=== PATIENT | female | born 1970 | race Caucasian/White ===

== ENCOUNTER → 2016-09-07 | Outpatient (CLI) | payer OTHER ==
[~2016-09-07] MED LIST: ADDERALL20 MG PO; METHYLPRED DP4 MG PO; MOTRIN 400MG.400 MG PO; NAPROSYN 500MG500 MG PO; PERCOCET 5/3251 EACH PO; PHENERGAN W/CO473 ML PO; PROPRANOLOL HCL20 MG PO; PROPYLTHIOURACI50 M1 PO; PROTONIX 40MG T40 MG PO; VENTOLIN H0.09 MG/AC IH; WELLBUTRIN XL150 MG PO; ZITHROMAX Z-PA250 M2 PO
[2016-09-07 12:35] LABS: HEMOGLOBIN 15.1 g/dL (12.2-16.2); LYMPH # 3.2 K/mm3 (0.7-4.5); LYMPH % 35.8 % (10-50.0)
[2016-09-08 09:41] LABS: Vitamin B12 315 pg/mL (211-946)
[2016-09-08 12:36] LABS: RA Latex Turbid. <10.0 IU/mL (0.0-13.9)
[2016-09-08 16:36] LABS: t-Transglutaminase (tTG) IgA <2 U/mL (0-3)
[2016-09-09 17:39] LABS: CELIAC AUTOANTIBODY IGA NEGATIVE (NEGATIVE)
[2016-09-09 17:40] LABS: RETICULIN IGA ANTIBODIES NEGATIVE TITER (<1:10)
[2016-09-11 09:37] LABS: Antinuclear Antibodies, IFA Negative (.)
[2016-09-11 16:36] LABS: F001-IgE Egg White <0.10 kU/L (Class 0); F002-IgE Milk <0.10 kU/L (Class 0); F003-IgE Codfish <0.10 kU/L (Class 0); F004-IgE Wheat <0.10 kU/L (Class 0); F010-IgE Sesame Seed <0.10 kU/L (Class 0); F013-IgE Peanut <0.10 kU/L (Class 0); F014-IgE Soybean <0.10 kU/L (Class 0); F024-IgE Shrimp <0.10 kU/L (Class 0); F256-IgE Walnut <0.10 kU/L (Class 0); F338-IgE Scallop <0.10 kU/L (Class 0)
== END ==
LOC: LAB 12:06
PROVIDERS: Nurse Practitioner Family
DX: K52.9 Noninfective gastroenteritis and colitis, unspecified (principal); M12.9 Arthropathy, unspecified; R20.2 Paresthesia of skin; E05.00 Thyrotoxicosis with diffuse goiter without thyrotoxic crisis or storm

== ENCOUNTER → 2017-03-30 | Outpatient (CLI) | payer OTHER ==
[2017-03-30 10:58] LABS: BUN 8 mg/dL (7-18); FREE THYROXIN INDEX 11.2 ug/dl (5.93-13.13)
[2017-03-30 11:03] LABS: GFR (ESTIMATED) 77 ML/MIN (59-)
== END ==
LOC: LAB 10:17
PROVIDERS: Nurse Practitioner Family
DX: E03.9 Hypothyroidism, unspecified (principal); R73.9 Hyperglycemia, unspecified; R60.9 Edema, unspecified; Z00.00 Encounter for general adult medical examination without abnormal findings

== ENCOUNTER → 2017-04-04 | Outpatient (CLI) | payer OTHER ==
[2017-04-06 05:40] LABS: HBsAg Screen Negative (Negative); Hep A Ab, IgM Negative (Negative); Hep B Core Ab, IgM Negative (Negative); Hep C Virus Ab <0.1 (0.0-0.9)
== END ==
LOC: LAB 14:13
PROVIDERS: Internal Medicine Adolescent Medicine
DX: R74.8 Abnormal levels of other serum enzymes (principal)

== ENCOUNTER → 2017-04-11 | Outpatient (CLI) | payer OTHER ==
--- NOTE | 2017-04-11 14:06 | RADIOLOGY REPORT PS360 ---
US RUQ-(ABD LTD)1ORGAN/QUAD/FU HISTORY: ELEVATED LIVER ENZYMES ORDERING PHYSICIAN: Donato Coffey MD PATIENT AGE: 46 years COMPARISON: None FINDINGS: PANCREAS:Unremarkable. No obvious mass or abnormal fluid collection. No ductal dilatation LIVER:There is increased echogenicity of the liver with poor through transmission of sound consistent with fatty liver. No focal liver lesion or biliary dilatation. RIGHT KIDNEY:Unremarkable. Normal size and echogenicity. No hydronephrosis GALLBLADDER:Prior cholecystectomy AORTA:No evidence of aneurysmal dilatation. IMPRESSION: Fatty liver. Status post cholecystectomy. No biliary dilatation
== END ==
LOC: RAD 09:10
DX: R74.8 Abnormal levels of other serum enzymes (principal)